=== PATIENT | male | born 1970 | race Caucasian/White ===

== ENCOUNTER → 2022-06-23 14:29 | Outpatient (CLI) | payer SELFPAY ==
[2022-06-23 19:44] LABS: Add Manual Diff / Slide Review NO; Basophils Absolute Auto 100 /uL (0-100); Basophils Percent Auto 0.6 % (0-2); Eosinophils Absolute Auto 0 /uL (0-450); Hemoglobin 12.5 g/dL (13.5-17.5); Lymphocytes Absolute Auto 900 /uL (1100-4500); Lymphocytes Percent Auto 5.6 % (25-40); Mean Corpuscular Hemoglobin 29.8 PG (26-34); Mean Corpuscular Volume 90.2 fL (80-100); Monocytes Absolute Auto 2100 /uL (0-900); Monocytes Percent Auto 12.4 % (3-14); Neutrophils Absolute Auto 13500 /uL (1500-7000); Neutrophils Percent Auto 81.4 % (50-75); Platelet Count 449 X10^3/uL (150-400); Red Blood Cell Count 4.21 X10^6/uL (4.5-5.9); Red Cell Distribution Width 15.2 % (11.6-14.8); White Blood Cell Count 16.6 X10^3/uL (4.5-11.0)
[2022-06-23 20:06] LABS: Alanine Aminotransferase 75 IU/L (<50); Albumin 2.9 g/dL (3.5-5.0); Albumin Globulin Ratio 0.7 (1.0-2.8); Alkaline Phosphatase 85 U/L (38-126); Aspartate Aminotransferase 77 IU/L (17-59); BUN Creatinine Ratio 13.4 (6-22); Bilirubin Total 1.1 mg/dL (0.2-1.3); Blood Urea Nitrogen 9 mg/dL (9-20); Calcium 8.1 mg/dL (8.4-10.2); Carbon Dioxide 24 mmol/L (22-32); Chloride 96 mmol/L (98-107); Estimated Glomerular Filt Rate > 60 mL/min (>60); Gamma Glutamyl Transpeptidase 54 U/L (15-73); Globulin 3.9 g/dL (1.7-4.1); Glucose 109 mg/dL (70-100); HEMOLYSIS < 15 (0-50); Potassium 4.6 mmol/L (3.4-5.1); Sodium 129 mmol/L (137-145); Total Protein 6.8 g/dL (6.3-8.2)
[2022-06-23 20:49] LABS: HIV 1 & 2 Ab/Ag 4th Gen Combo NEGATIVE (NEGATIVE); Hep C Virus Ab w/Reflex Quant NEGATIVE s/c (NEGATIVE)
== END ==
PROVIDERS: PCP Physician Assistant Medical; Visit Provider Physician Assistant Medical
DX: F10.90 Alcohol use, unspecified, uncomplicated (principal); R53.83 Other fatigue
CPT/HCPCS: 80053; 82977; 85025; 86803; 87389

== ENCOUNTER → 2022-06-29 11:25 | Outpatient (CLI) | payer SELFPAY ==
[2022-06-29 20:20] LABS: Add Manual Diff / Slide Review NO; Basophils Absolute Auto 0 /uL (0-100); Basophils Percent Auto 0.2 % (0-2); Eosinophils Absolute Auto 100 /uL (0-450); Eosinophils Percent Auto 0.6 % (2-4); Hematocrit 37.7 % (41-53); Hemoglobin 12.1 g/dL (13.5-17.5); Lymphocytes Absolute Auto 1800 /uL (1100-4500); Lymphocytes Percent Auto 13.9 % (25-40); Mean Corpuscular HGB Conc 32.1 % (30-36); Mean Corpuscular Hemoglobin 29.1 PG (26-34); Mean Corpuscular Volume 90.5 fL (80-100); Monocytes Absolute Auto 1100 /uL (0-900); Monocytes Percent Auto 8.7 % (3-14); Neutrophils Absolute Auto 9800 /uL (1500-7000); Neutrophils Percent Auto 76.6 % (50-75); Platelet Count 675 X10^3/uL (150-400); Red Blood Cell Count 4.16 X10^6/uL (4.5-5.9); Red Cell Distribution Width 15.7 % (11.6-14.8); White Blood Cell Count 12.8 X10^3/uL (4.5-11.0)
[2022-06-29 20:37] LABS: Alanine Aminotransferase 38 IU/L (<50); Albumin 2.4 g/dL (3.5-5.0); Albumin Globulin Ratio 0.6 (1.0-2.8); Alkaline Phosphatase 93 U/L (38-126); Aspartate Aminotransferase 26 IU/L (17-59); BUN Creatinine Ratio 14.3 (6-22); Bilirubin Total 0.3 mg/dL (0.2-1.3); Blood Urea Nitrogen 7 mg/dL (9-20); C-Reactive Protein Quant 4.8 mg/dL (<1.0); Calcium 8.5 mg/dL (8.4-10.2); Carbon Dioxide 21 mmol/L (22-32); Chloride 101 mmol/L (98-107); Estimated Glomerular Filt Rate > 60 mL/min (>60); Globulin 3.7 g/dL (1.7-4.1); Glucose 124 mg/dL (70-100); HEMOLYSIS < 15 (0-50); Potassium 4.7 mmol/L (3.4-5.1); Sodium 131 mmol/L (137-145); Total Protein 6.1 g/dL (6.3-8.2)
[2022-06-29 21:11] LABS: Erythrocyte Sedimentation Rate 56 MM/HR (0-15)
[2022-06-29 21:24] LABS: D Dimer 1432 ng/ml (<500)
[2022-06-29 22:25] LABS: Thyroid Stimulating Hormone 3.13 uIU/mL (0.47-4.68)
== END ==
PROVIDERS: PCP Physician Assistant Medical; Visit Provider Physician Assistant Medical
DX: J98.4 Other disorders of lung (principal); R05.3 Chronic cough; R05.9 Cough, unspecified; R23.2 Flushing; R53.83 Other fatigue
CPT/HCPCS: 80053; 84443; 85025; 85379; 85651; 86140

== ENCOUNTER 2022-06-30 15:23 | Emergency (ER) | payer SELFPAY ==
[2022-06-30 15:39] VITALS: BP 128/85; PULSE 90; RESP 18; TEMP 37.1; O2SAT 99; BMI 23.1
--- NOTE | 2022-06-30 17:07 | DI.CT.S_ITS ---
PROCEDURE: CT ANGIO CHEST PE PROTOCOL INDICATIONS: Cavitary lesions left upper lobe, elevated dimer TECHNIQUE: After the administration of intravenous contrast, 2 mm thick sections acquired from the pulmonary apices to the posterior costophrenic angles. 3-dimensional maximum intensity projection (MIP) coronal and sagittal reformats were then acquired through the thorax. For radiation dose reduction, the following was used: automated exposure control, adjustment of mA and/or kV according to patient size. COMPARISON: None. FINDINGS: Image quality: Good Lungs and pleura: Thick wall cavitary lesion in the left upper lobe as seen on radiography measuring 6.5 x 6.9 by 8.5 centimeters (5/118, 8/47). There is adjacent bronchial narrowing and occlusion, scarring/atelectasis, as well as opacity in the medial lingula. There also multiple borderline enlarged fissural nodules, for example in the right 5/174 measuring 8 by 15 millimeters. No pleural effusions. No other areas of dense airspace consolidation. Other micro nodules are present, for example in the right 10/53. Mediastinum, heart, and esophagus: No pulmonary embolism. Nonspecific distal esophageal wall thickening, mild. There are borderline enlarged hilar mediastinal lymph nodes, for example left hilar node measures 1.2 centimeters in short axis (4/73). Some lymph nodes have calcifications, indicating granulomatous process. Chest wall and thyroid: The unremarkable Upper abdomen: No gross abnormality on these limited arterial phase images of the partially visualized upper abdomen. Bones: Multiple bilateral rib deformities, correlate with tenderness, not definitely acute. Age-indeterminate height loss of some vertebral bodies, most notably T8, possibly degenerative in etiology IMPRESSION: Large left upper lobe cavitary lesion with thick nicole and adjacent lingular opacity, possibly malignant or infectious (including fungal and tuberculous etiologies). Consider pulmonary consultation if not already obtained. Multiple borderline and mildly enlarged pulmonary fissural nodules and mediastinal/hilar lymph nodes. Attention on follow-up. No pulmonary embolism. Dictated by: Oneal Kohler M.D. on 06/30/2022 at 17:36 Approved by: Oneal Kohler M.D. on 06/30/2022 at 17:43
[2022-06-30 17:26] LABS: Add Manual Diff / Slide Review NO; Basophils Absolute Auto 100 /uL (0-100); Basophils Percent Auto 0.9 % (0-2); Eosinophils Absolute Auto 0 /uL (0-450); Eosinophils Percent Auto 0.3 % (2-4); Hematocrit 37.8 % (41-53); Hemoglobin 12.3 g/dL (13.5-17.5); Lymphocytes Absolute Auto 1800 /uL (1100-4500); Lymphocytes Percent Auto 16.1 % (25-40); Mean Corpuscular HGB Conc 32.5 % (30-36); Mean Corpuscular Hemoglobin 28.8 PG (26-34); Mean Corpuscular Volume 88.6 fL (80-100); Monocytes Absolute Auto 900 /uL (0-900); Monocytes Percent Auto 8.4 % (3-14); Neutrophils Absolute Auto 8200 /uL (1500-7000); Neutrophils Percent Auto 74.3 % (50-75); Platelet Count 654 X10^3/uL (150-400); Red Blood Cell Count 4.27 X10^6/uL (4.5-5.9); Red Cell Distribution Width 15.7 % (11.6-14.8); White Blood Cell Count 11.1 X10^3/uL (4.5-11.0)
[2022-06-30 17:36] LABS: Alanine Aminotransferase 40 IU/L (<50); Albumin Globulin Ratio 0.7 (1.0-2.8); Alkaline Phosphatase 74 U/L (38-126); Aspartate Aminotransferase 40 IU/L (17-59); BUN Creatinine Ratio 9.3 (6-22); Bilirubin Total 0.3 mg/dL (0.2-1.3); Blood Urea Nitrogen 5 mg/dL (9-20); Calcium 8.8 mg/dL (8.4-10.2); Carbon Dioxide 23 mmol/L (22-32); Chloride 102 mmol/L (98-107); Estimated Glomerular Filt Rate > 60 mL/min (>60); Globulin 4.2 g/dL (1.7-4.1); Glucose 125 mg/dL (70-100); HEMOLYSIS < 15 (0-50); Potassium 3.8 mmol/L (3.4-5.1); Sodium 134 mmol/L (137-145); Total Protein 7.2 g/dL (6.3-8.2)
[2022-06-30 17:52] LABS: Procalcitonin 0.11 ng/mL (<0.5)
--- NOTE | 2022-06-30 18:45 | ED.GENADULT ---
HPI - General Adult General Chief complaint: Upper Respiratory Symptoms Stated complaint: Sent by [facility] for bloodwork & x-ray Time Seen by Provider: 06/30/22 15:45 Source: patient Mode of arrival: Ambulatory Limitations: no limitations History of Present Illness HPI narrative: Patient is a 51-year-old male who [place] evaluation of a elevated D-dimer. Patient states that since the end of last year he has been having some issues with dyspnea on exertion. He denied any chest pain. He stated that the symptoms have been getting worse over the past month. He [place] an appointment with [place] He stated that he has had a couple chest x-rays. He was started on antibiotics. He states since starting on antibiotics he has felt better. He was seen again today. He was told that he needed to come to the emergency department because there was a lesion in his chest and also he would an elevated D-dimer. He stated that he was told that he may have a blood clot in his lung. He denied any chest pain. No nausea or vomiting. No skin rashes. No recent travel. Up until a week ago he has not been seen by a medical provider in many years. He does smoke. Related Data Previous Rx's Medication Instructions Recorded azithromycin 250 mg tablet 250 mg PO DAILY 9 days #18 tabs 06/23/22 Allergies Allergy/AdvReac Type Severity Reaction Status Date / Time No Known Drug Allergies Allergy Verified 06/29/22 11:09 Review of Systems Review of Systems ROS Unobtainable: All systems reviewed & are unremarkable except as noted in HPI and below Patient History Medical History Ankle pain (~2011) Chicken pox (~1984) Chronic back pain (~1995) Chronic cough (~2007) Depression (~2011) Jaundice PTSD (post-traumatic stress disorder) (~2011) Red face Restless leg syndrome (~2016) Rib fractures Rosacea (~1999) Substance abuse Family History (Updated 06/28/22 @ 22:38 by Elisa Jaime) Father Alcoholic Brother Alcoholic Sister Alcoholic Sister Alcoholic Social History Smoking Status: Current every day smoker Smoking Status: Current every day smoker alcohol intake frequency: a few times a week Substance Use Type: marijuana Exam Initial Vital Signs Initial Vital Signs: Vital Signs Temperature 98.7 F 06/30/22 15:39 Pulse Rate 90 06/30/22 15:39 Respiratory Rate 18 06/30/22 15:39 Blood Pressure 128/85 06/30/22 15:39 Pulse Oximetry 99 06/30/22 15:39 Oxygen Delivery Method Room Air 06/30/22 15:39 Const General: cooperative and comfortable HENMT Head: normal to inspection and normocephalic Resp Effort & Inspection: normal respiratory effort Auscultation: clear to auscultation bilaterally Cardio Rate: regular rate Rhythm: regular rhythm GI Inspection: normal to inspection Skin General: no rashes or lesions noted Neuro General: patient alert, patient awake, patient oriented x3 and moves all extremities Speech: speech normal Gait: normal gait Extrem General: normal to inspection and capillary refill normal Psych Appearance: grossly normal Course Orders Ordered: ED Orders 06/30/22 15:45 CBC Auto Diff [Complete Blood Count AUTO DIFF] Stat CMP [Comprehensive Metabolic Panel] Stat Procalcitonin Stat 06/30/22 15:52 EKG-12 Lead Stat 06/30/22 17:07 CT angio chest PE protocol Stat Vital Signs Vital signs: Vital Signs - 8 hr 06/30/22 20:33 Pulse Rate 102 H Respiratory Rate 20 Blood Pressure 124/77 Pulse Oximetry 97 Oxygen Delivery Method Room Air Medical Decision Making Medical Records Medical records reviewed: Yes I reviewed the patient's medical records. Lab Data Lab results reviewed: Yes I reviewed the patient's lab results. 06/30/22 15:45 06/30/22 15:45 Labs: Lab Results 06/30/22 06/30/22 06/30/22 Range/Units 15:45 15:45 15:45 WBC 11.1 H (4.5-11.0) X10^3/uL RBC 4.27 L (4.5-5.9) X10^6/uL Hgb 12.3 L (13.5-17.5) g/dL Hct 37.8 L (41-53) % MCV 88.6 (80-100) fL MCH 28.8 (26-34) PG MCHC 32.5 (30-36) % RDW 15.7 H (11.6-14.8) % Plt Count 654 H (150-400) X10^3/uL Neut % (Auto) 74.3 (50-75) % Lymph % (Auto) 16.1 L (25-40) % Knox % (Auto) 8.4 (3-14) % Eos % (Auto) 0.3 L (2-4) % Baso % (Auto) 0.9 (0-2) % Neut # (Auto) 8200 H (3248-5099) /uL Lymph # (Auto) 1800 (9557-2855) /uL Knox # (Auto) 900 (0-900) /uL Eos # (Auto) 0 (0-450) /uL Baso # (Auto) 100 (0-100) /uL Sodium 134 L (137-145) mmol/L Potassium 3.8 (3.4-5.1) mmol/L Chloride 102 (98-107) mmol/L Carbon Dioxide 23 (22-32) mmol/L BUN 5 L (9-20) mg/dL Creatinine 0.54 L (0.66-1.25) mg/dL Estimated GFR > 60 (>60) mL/min BUN/Creatinine Ratio 9.3 (6-22) Glucose 125 H (70-100) mg/dL Calcium 8.8 (8.4-10.2) mg/dL Total Bilirubin 0.3 (0.2-1.3) mg/dL AST 40 (17-59) IU/L ALT 40 (<50) IU/L Alkaline Phosphatase 74 (38-126) U/L Total Protein 7.2 (6.3-8.2) g/dL Albumin 3.0 L (3.5-5.0) g/dL Globulin 4.2 H (1.7-4.1) g/dL Albumin/Globulin Ratio 0.7 L (1.0-2.8) Procalcitonin 0.11 (<0.5) ng/mL Imaging Data CT scan - chest: Radiologist's Impression: PROCEDURE:? CT ANGIO CHEST PE PROTOCOL ? INDICATIONS:? Cavitary lesions left upper lobe, elevated dimer ? TECHNIQUE:? After the administration of intravenous contrast, 2 mm thick sections acquired from the pulmonary apices to the posterior costophrenic angles.? 3-dimensional maximum intensity projection (MIP) coronal and sagittal reformats were then acquired through the thorax.? For radiation dose reduction, the following was used:? automated exposure control, adjustment of mA and/or kV according to patient size.? ? COMPARISON:? None. ? FINDINGS:? Image quality:? Good ? Lungs and pleura:? Thick wall cavitary lesion in the left upper lobe as seen on radiography measuring 6.5 x 6.9 by 8.5 centimeters (5/118, 8/47). There is adjacent bronchial narrowing and occlusion, scarring/atelectasis, as well as opacity in the medial lingula. ? There also multiple borderline enlarged fissural nodules, for example in the right 174 measuring 8 by 15 millimeters.? ? No pleural effusions.? No other areas of dense airspace consolidation. ? Other micro nodules are present, for example in the right . ? Mediastinum, heart, and esophagus:? No pulmonary embolism.? Nonspecific distal esophageal wall thickening, mild.? ? There are borderline enlarged hilar mediastinal lymph nodes, for example left hilar node measures 1.2 centimeters in short axis (73).? Some lymph nodes have calcifications, indicating granulomatous process. ? Chest wall and thyroid:? The unremarkable ? Upper abdomen:? No gross abnormality on these limited arterial phase images of the partially visualized upper abdomen. ? Bones:? Multiple bilateral rib deformities, correlate with tenderness, not definitely acute.? Age-indeterminate height loss of some vertebral bodies, most notably T8, possibly degenerative in etiology ? IMPRESSION:? Large left upper lobe cavitary lesion with thick nicole and adjacent lingular opacity, possibly malignant or infectious (including fungal and tuberculous etiologies).? Consider pulmonary consultation if not already obtained. Multiple borderline and mildly enlarged pulmonary fissural nodules and mediastinal/hilar lymph nodes.? Attention on follow-up. ? No pulmonary embolism. [facility] Narrative Medical decision making narrative: Patient's labs are relatively unremarkable however the CT scan shows a large cavitary lesion in his left upper chest. He is not hypoxic. He is not tachypneic. No respiratory distress. He does not have a pulmonary embolism. Review of his medical record shows that there has been a consultation placed for him to see pulmonology. Also appears that he had a PPD placed within the past 24 hours. Given his presentation in the findings on the CT scan he does require follow-up with pulmonology. This does not necessarily have to be a follow-up this evening An[facility] a transfer from this facility given his presentation. There was some concern that this is an infection but he is on antibiotics. It could also be a malignancy. Attempted to contact pulmonology at [facility] to discuss the case with them. We attempted multiple times and while waiting for a phone call back the patient states he needed to leave because he had to catch [place] Will discharge patient home. He was informed that his primary provider could work on expediting a follow-up with pulmonology. Discharge Plan Departure Patient Disposition: Home Clinical Impression: Cavitary lesion of lung Activity Restrictions/Additional Instructions: Based on the CT scan today you absolutely need a follow-up with pulmonology for further evaluation. There is a potential that what we see today his either a abnormal type of infection or a malignancy/cancer. I recommend that your primary doctor make contact with the manager management to whom you have been referred to see if there is any further workup that can be done prior to the visit. Continue all of your medications as directed. Return to the emergency department for new symptoms. Prescriptions: No Action azithromycin 250 mg tablet 250 mg PO DAILY 9 Days Qty: 18 0RF Rx Instructions: start on day 2 of therapy Referrals: Gali Sesay PA-C [Primary Care Provider] - Stand Alone Forms: Patient Portal/API
--- NOTE | 2022-06-30 20:25 | PC.NURSE ---
PVC MONITOR note: Attempted to call Dr. Amira Hernandez 8 times for pulmonary. Used [phone] pager number (obtained by [facility]'s charge nurse)- called 6 times and called [phone] (obtained from [facility]'s charge nurse) and left 2 messages. Got zero response. Last time attempted to call the 360 number messaging system said that this phone number not accepting voice messages or calls. Told Dr. Khan regarding multiple attempts to contact Dr. Hernandez.
[2022-06-30 20:33] VITALS: BP 124/77; PULSE 102; RESP 20; O2SAT 97
== END 2022-06-30 20:36 | disposition home or self-care (01) ==
PROVIDERS: Emergency Medicine; Emergency Provider Emergency Medicine; PCP Physician Assistant Medical
DX: J98.4 Other disorders of lung (principal); R06.00 Dyspnea, unspecified; R79.89 Other specified abnormal findings of blood chemistry; R07.9 Chest pain, unspecified
CPT/HCPCS: 36415; 71275; 80053; 84145; 85025; 93005; 99283; 99284; Q9967